=== PATIENT | male | born 1975 | race African-American/Black ===

== ENCOUNTER 2020-09-29 10:54 | Emergency (ER) | payer SELFPAY ==
[~2020-09-29] VITALS: Ht 193 cm; Wt 70.3 kg
[2020-09-29 11:59] VITALS: BP 141/94
[2020-09-29] MEDS ORDERED: IBUPROFEN 800 MG TAB PO ONE (12:00)
== END 2020-09-29 12:19 | disposition home or self-care (01) ==
LOC: ER 10:54
DX: S62.231A Other displaced fracture of base of first metacarpal bone, right hand, initial encounter for closed fracture (principal); Z88.0 Allergy status to penicillin; Z88.6 Allergy status to analgesic agent; X58.XXXA Exposure to other specified factors, initial encounter; Y93.89 Activity, other specified; Y92.89 Other specified places as the place of occurrence of the external cause; Y99.8 Other external cause status
CPT/HCPCS: 29125; 73130

== ENCOUNTER 2021-01-24 10:16 | Emergency (ER) | payer MEDICAID, OTHER ==
[~2021-01-24] VITALS: Ht 193 cm; Wt 74.8 kg
[2021-01-24 10:43] VITALS: BP 142/83
[2021-01-24] MEDS ORDERED: KETOROLAC TROMETH 60MG/2ML VIAL IM ONE (11:00)
== END 2021-01-24 11:58 | disposition home or self-care (01) ==
LOC: ER 10:16
DX: M54.42 Lumbago with sciatica, left side (principal); F17.210 Nicotine dependence, cigarettes, uncomplicated; J45.909 Unspecified asthma, uncomplicated; Z88.0 Allergy status to penicillin; Z88.6 Allergy status to analgesic agent
CPT/HCPCS: 96372; 99283; J1885